=== PATIENT | male | born 1990 | race Caucasian/White ===

== ENCOUNTER 2017-05-13 11:52 | Emergency (ER) | payer SELFPAY ==
[2017-05-13 12:00] VITALS: BP 128/75; BMI 24.1
[2017-05-13 12:35] LABS: BILIRUBIN,URINE NEGATIVE (NEGATIVE); BLOOD/HEMOGLOBIN,URINE NEGATIVE (NEGATIVE); GLUCOSE, URINE NEGATIVE (NEGATIVE); KETONES,URINE NEGATIVE (NEGATIVE); LEUKOCYTE ESTERASE ,URINE NEGATIVE (NEGATIVE); NITRITES,URINE NEGATIVE (NEGATIVE); PROTEIN,URINE NEGATIVE (NEGATIVE); UROBILINOGEN,URINE NORMAL (NORMAL)
--- NOTE | 2017-05-13 12:38 | DR.GENAD ---
HPI - PCP Primary Care Physician: nfd - HPI Comment HPI Comment: SYMTOM PERSISTENT AND GETTING WORSE. NO FEVER OR FLU LIKE SYMTOM. - Complaint/Symptoms Chief Complaint Doctors Comments: SUDDEN ONSET OF DIZZINESS, NEAR SYNCOPE ABD CHEST DISCOMFORT WHILE AT WORK SITTING DOWN. Chief Complaint:: has been dizzy and weak had e[facility] done [facility] - Nurses notes reviewed Nurses Notes Review: Yes - Source History Provided: Patient - Mode of Arrival Mode of Arrival: Ambulatory - Timing Onset of Chief Complaint: 05/13/17 Came on: Suddenly - Duration Duration: Constant Duration: Hours - Severity Severity: Moderate PMH - PMH Past Medical History: No Past Surgical History: No - Family History History of Family Medical Conditions: Yes Family Medical History: Diabetes Mellitus, Cancer - Social History Does patient currently use any type of tobacco product: No Have you used tobacco products in the last 12 months: No Type of Tobacco Use: None Does any household member use tobacco: No Alcohol Use: Rarely Do you use any recreational Drugs:: No Lives With: Family Lives Where: Home - infectious screening In the last 2 months have you had wt loss of >10#?: NO Have you had fever, night sweats or hemotysis?: No Have you traveled outside the country in the last 6 months?: No Isolation: Standard ROS - Review of Systems Constitutional: Weakness Eyes: No Symptoms Reported ENTM: No Symptoms Reported Respiratoy: Short of Breath Cardiovascular: No Symptoms Reported Gastrointestinal/Abdominal: No Symptoms Reported Genitourinary: No Symptoms Reported Neurological: Headache, Dizziness Musculoskeletal: No Symptoms Reported Integumentary: No Symptoms Reported Hematologic/Lymphatic: No Symptoms Reported Endocrine: No Symptoms Reported All Other Systems: Reviewed and Negative PE - Vital Signs Vitals: Temperature 98.9 F Pulse Rate 78 Respiratory Rate 18 Blood Pressure 128/75 O2 Sat by Pulse Oximetry 100 - General Limitations: No Limitations General Appearance: Alert - Head Head Exam: Normal Inspection - Eyes Eye exam: Normal Appearance - ENT ENT Exam: Normal Oropharynx External Ear Exam: Normal External Inspection TM/Canal Exam: Bilateral Normal Nose Exam: Normal Nose Exam Mouth Exam: Normal Inspection Throat Exam: Normal Inspection - Neck Neck Exam: Trachea Midline - Chest Chest Inspection: Symmetric Chest Wall Rise - Respiratory Respiratory Exam: Normal Lung Sounds Bilat Respiratory Exam: Bilateral Clear to Auscultation - Cardiovascular Cardiovascular Exam: Regular Rate, Normal Rhythm, Normal Heart Sounds - Abdominal Exam Abdominal Exam: Normal Bowel Sounds, Soft. negative: Tenderness - Extremities Extremities Exam: Normal Inspection - Back Back Exam: Normal Inspection - Neurologic Neurological Exam: Alert - Psychiatric Psychiatric Exam: Normal Affect - Skin Skin Exam: Normal Color MDM - Additional Information Additional Information Obtained From: Family - Differential Diagnosis Differential Diagnosis: DIZZINESS, NEAR SYNCOPE Course - Treatment Treatment: SEE ORDERS. ABDNORMAL HEAD CT. MRI DONE AND NORMAL. - Education/Counseling Education/Counseling: Patient, Family, Education Educated On: Diagnosis, Needs for Follow Up ROR - Labs Reviewed Laboratory Results Reviewed?: Yes Result Diagrams: 05/13/17 12:51 05/13/17 12:51 Laboratory: WBC 7.9 X10^3/uL (3.6-10.0) 05/13/17 12:51 RBC 5.03 X10^6/uL (4.7-6.0) 05/13/17 12:51 Hgb 14.6 g/dL (13.5-18.0) 05/13/17 12:51 Hct 41.7 % (42.0-54.0) L 05/13/17 12:51 MCV 82.8 fL (80.0-100.0) 05/13/17 12:51 MCH 28.9 pg (27.0-34.0) 05/13/17 12:51 MCHC 34.9 g/dL (33.0-35.0) 05/13/17 12:51 RDW 12.7 % (11.6-16.5) 05/13/17 12:51 Plt Count 212 X10^3/uL (150.0-450.0) 05/13/17 12:51 MPV 8.0 fL (7.4-11.0) 05/13/17 12:51 Neut % 80.1 % (42.0-75.0) H 05/13/17 12:51 Lymph % 13.1 % (21.0-51.0) L 05/13/17 12:51 [place] % 5.5 % (0.0-13.0) 05/13/17 12:51 Eos % 0.9 % (0.9-2.9) 05/13/17 12:51 Baso % 0.4 % (0.2-1.0) 05/13/17 12:51 Neut # 6.3 x10^3/uL (2.2-4.8) H 05/13/17 12:51 Lymph # 1.0 X10^3/uL (1.3-2.9) L 05/13/17 12:51 [place] # 0.4 x10^3/uL (0.3-0.8) 05/13/17 12:51 Eos # 0.1 x10^3/uL (0.0-0.2) 05/13/17 12:51 Baso # 0.0 X10^3/uL (0.0-0.1) 05/13/17 12:51 Absolute Nucleated RBC 0.0 /100WBC 05/13/17 12:51 Sodium 143 mmol/L (136-145) 05/13/17 12:51 Corrected Sodium TNP 05/13/17 12:51 Potassium 3.6 mmol/L (3.5-5.1) 05/13/17 12:51 Chloride 105 mmol/L (98-107) 05/13/17 12:51 Carbon Dioxide 28.6 mmol/L (21-32) 05/13/17 12:51 BUN 13 mg/dL (7-18) 05/13/17 12:51 Creatinine 0.78 mg/dL (0.70-1.30) 05/13/17 12:51 Est GFR (MDRD) Af Amer > 60 (>60) 05/13/17 12:51 Est GFR (MDRD) Non-Af > 60 (>60) 05/13/17 12:51 Glucose 101 mg/dL (65-99) H 05/13/17 12:51 Calcium 9.4 mg/dL (8.5-10.1) 05/13/17 12:51 Corrected Calcium TNP 05/13/17 12:51 Total Bilirubin 1.90 mg/dL (0.2-1.0) H 05/13/17 12:51 AST 18 Units/L (15-37) 05/13/17 12:51 ALT 30 Units/L (12-78) 05/13/17 12:51 Alkaline Phosphatase 42 Units/L (46-116) L 05/13/17 12:51 Creatine Kinase 189 Units/L (39-308) 05/13/17 12:51 CK-MB (CK-2) < 1.0 ng/mL (0-4.0) 05/13/17 12:51 CK/CKMB % Calc 0.5 % (<4) 05/13/17 12:51 Troponin I < 0.02 ng/mL (0-1.5) 05/13/17 12:51 Total Protein 7.3 g/dL (6.4-8.2) 05/13/17 12:51 Albumin 4.1 g/dL (3.4-5.0) 05/13/17 12:51 Globulin 3.2 g/dL (2.5-4.5) 05/13/17 12:51 Albumin/Globulin Ratio 1.3 Ratio (1.1-2.1) 05/13/17 12:51 Specimen Type Clean catch urine 05/13/17 12:17 Urine Color Yellow (YELLOW) 05/13/17 12:17 Urine Appearance Clear (CLEAR) 05/13/17 12:17 Urine pH 7.0 (5.0 - 8.0) 05/13/17 12:17 Ur Specific [place] 1.005 (1.000-1.030) 05/13/17 12:17 Urine Protein Negative (NEGATIVE) 05/13/17 12:17 Urine Glucose (UA) Negative (NEGATIVE) 05/13/17 12:17 Urine Ketones Negative (NEGATIVE) 05/13/17 12:17 Urine Occult Blood Negative (NEGATIVE) 05/13/17 12:17 Urine Nitrite Negative (NEGATIVE) 05/13/17 12:17 Urine Bilirubin Negative (NEGATIVE) 05/13/17 12:17 Urine Urobilinogen Normal (NORMAL) 05/13/17 12:17 Ur Leukocyte Esterase Negative (NEGATIVE) 05/13/17 12:17 Urine RBC None seen /HPF (NEGATIVE) 05/13/17 12:17 Urine WBC None seen /HPF (NEGATIVE) 05/13/17 12:17 Ur Squamous Epith Cells Rare /HPF (NEGATIVE) 05/13/17 12:17 Urine Bacteria Negative /HPF (NEGATIVE) 05/13/17 12:17 Ur Culture Indicated? No/not indicated 05/13/17 12:17 Urine Opiates Screen Negative (NEG=<300) 05/13/17 12:17 Urine Methadone Screen Negative (NEG=<300) 01/25/18 12:17 Ur Barbiturates Screen Negative (NEG=<200) 05/13/17 12:17 Ur Phencyclidine Scrn Negative (NEG=<25) 05/13/17 12:17 Ur Amphetamines Screen Negative (NEG=<1000) 05/13/17 12:17 U Benzodiazepines Scrn Negative (NEG=<200) 05/13/17 12:17 Urine Cocaine Screen Negative (NEG=<300) 05/13/17 12:17 U Marijuana (THC) Screen Negative (NEG=<50) 05/13/17 12:17 - XRAY XRAY Interpreted by: Radiologist XRAY Findings: REPORT DISCUSS WITH PATIENT AND FAMILY. - Diagnosis Discharge Problem: Dizziness, Near syncope, Chest discomfort - Discharge Plan Disposition: 01 HOME, SELF-CARE Condition: Stable - Follow ups/Referrals Follow ups/Referrals: [facility],None [Primary Care Provider] - 3 days GILDA LAZCANO [STAFF PHYSICIAN] - 3 days - Instructions Instructions: Dizziness, [id number] Additional Instructions: RETURN TO ED IF WORSE.
[2017-05-13 12:42] LABS: APPEARANCE,URINE CLEAR (CLEAR); BACTERIA,URINE NEGATIVE /HPF (NEGATIVE); COLOR,URINE YELLOW (YELLOW); RBC,URINE NONE SEEN /HPF (NEGATIVE); SQUAMOUS EPITHELIAL CELL,UR RARE /HPF (NEGATIVE)
[2017-05-13 13:03] LABS: BASOPHILS % (AUTO) 0.4 % (0.2-1.0); EOSINOPHILS # (AUTO) 0.1 x10^3/uL (0.0-0.2); EOSINOPHILS % (AUTO) 0.9 % (0.9-2.9); HEMATOCRIT 41.7 % (42.0-54.0); HEMOGLOBIN 14.6 g/dL (13.5-18.0); LYMPHOCYTES % (AUTO) 13.1 % (21.0-51.0); MEAN CORPUSCULAR HEMOGLOBIN 28.9 pg (27.0-34.0); MEAN CORPUSCULAR HGB CONC 34.9 g/dL (33.0-35.0); MEAN CORPUSCULAR VOLUME 82.8 fL (80.0-100.0); MONOCYTES # (AUTO) 0.4 x10^3/uL (0.3-0.8); MONOCYTES % (AUTO) 5.5 % (0.0-13.0); NEUTROPHILS # (AUTO) 6.3 x10^3/uL (2.2-4.8); NEUTROPHILS % (AUTO) 80.1 % (42.0-75.0); PLATELET COUNT 212 X10^3/uL (150.0-450.0); RED BLOOD COUNT 5.03 X10^6/uL (4.7-6.0); RED CELL DISTRIBUTION WIDTH 12.7 % (11.6-16.5); WHITE BLOOD COUNT 7.9 X10^3/uL (3.6-10.0)
--- NOTE | 2017-05-13 13:13 | RAD ---
History: Shortness of breath Study: Portable upright AP chest Comparison: None Findings: The lungs are clear and mildly hyperinflated. The heart and mediastinum are unremarkable. N o bony abnormality is suggested. Impression: Negative Reported By:
--- NOTE | 2017-05-13 13:20 | CT ---
STUDY: CT HEAD WITHOUT CONTRAST HISTORY: Dizziness. Lightheadedness. TECHNIQUE: Multiple axial images of the head were obtained from the skull base to the vertex without administration of IV contrast. Automated exposure control (AEC) was utilized to adjust the MA and/o r kV. COMPARISON: None. FINDINGS: The sulci, cisterns and ventricles are age appropriate. There is possible subtle low-atten uation focus in the left occipital lobe. There is no evidence of acute hemorrhage, mass, mass effect, or midline shift. There are no abnormal intra-axial or extra-axial fluid collections. There is no evidence of acute osseous abnormality or significant soft tissue swelling. Visualized par anasal sinuses and mastoid air cells are predominately clear. IMPRESSION: 1. Subtle low-attenuation focus in the left occipital lobe. This is an indeterminate finding. 2. Would consider an MRI examination of brain for further evaluation. Reported By:
[2017-05-13 13:52] LABS: BLOOD UREA NITROGEN 13 mg/dL (7-18); CALCIUM 9.4 mg/dL (8.5-10.1); CARBON DIOXIDE 28.6 mmol/L (21-32); CHLORIDE 105 mmol/L (98-107); CREATININE 0.78 mg/dL (0.70-1.30); SODIUM 143 mmol/L (136-145); TROPONIN I < 0.02 ng/mL (0-1.5); eGFR BLACK RACES > 60 (>60); eGFR NON BLACK RACES > 60 (>60)
[2017-05-13 13:58] LABS: ALANINE AMINOTRANSFERASE 30 Units/L (12-78); ALBUMIN 4.1 g/dL (3.4-5.0); ALKALINE PHOSPHATASE 42 Units/L (46-116); ASPARTATE AMINO TRANSFERASE 18 Units/L (15-37); CKMB % 0.5 % (<4); CREATINE KINASE 189 Units/L (39-308); CREATINE KINASE MB < 1.0 ng/mL (0-4.0); TOTAL PROTEIN 7.3 g/dL (6.4-8.2)
[2017-05-13] MEDS ORDERED: ATIVAN INJ 2 MG VIAL IVP ONE (14:29)
[2017-05-13] MEDS ORDERED: ATIVAN INJ 2 MG VIAL ONE (14:38)
--- NOTE | 2017-05-13 17:14 | MRI ---
STUDY: MRI OF THE BRAIN WITHOUT GADOLINIUM History: Dizzy. Lightheaded. Comparison: Head CT from May 13, 2017. Technique: Multiplanar multi-sequence MRI of the brain was obtained utilizing standard departmental p rotocol. Sagittal and axial T1, axial T2, FLAIR, diffusion (DWI/ADC) images through the brain were pe rformed. Findings: No signal abnormalities are identified the region of the left parietal or occipital lobes. The sulci, cisterns, and ventricles are age appropriate. There is no evidence of acute territorial in farction, hemorrhage, mass, mass effect or midline shift. There are no abnormal intra-axial or extra- axial fluid collections. The major intracranial arterial and venous vascular flow voids are intact. IMPRESSION: 1. No evidence of acute intracranial abnormality. The previously noted low-attenuation focus describ ed on the prior CT examination has no corresponding abnormality on MRI and is likely artifactual. Reported By:
== END 2017-05-13 17:26 | disposition home or self-care (01) ==
LOC: ER 12:07
DX: R07.89 Other chest pain (principal); R55 Syncope and collapse; R42 Dizziness and giddiness
CPT/HCPCS: 36415; 70450; 70551; 71045; 80053; 80307; 81001; 82550; 82553; 84484; 85025; 93005; 93010; 96365; 96374; 99283; 99285; A4222; G0434; J2060